=== PATIENT | female | born 1985 | race Caucasian/White ===

== ENCOUNTER 2017-03-21 19:26 | Emergency (ER) | payer OTHER ==
[2017-03-21 19:27] VITALS: BMI 48.2
[2017-03-21] MEDS ORDERED: Sodium Chloride 0.9% 1,000 ML IV STA (20:36)
--- NOTE | 2017-03-21 20:38 | ED PDOC ---
Arrival/HPI - General Chief Complaint: Abdominal Pain Time Seen by Provider: 03/21/17 20:15 - History of Present Illness Narrative History of Present Illness (Text): 03/21/17 20:37 31 yo female, hx of latent tb, on inh x 6 mo, presents with right sided abd pain x 2 week. no fevers, n/v/d, urinary changes. pt denies hemopytsis, cough, chest pain or other complaints Past Medical History - Provider Review Nursing Documentation Reviewed: Yes - Past History Past History: No Previous - Infectious Disease Hx of Infectious Diseases: None - Tetanus Immunization Tetanus Immunization: Unknown - Reproductive Menopause: No - Past Medical History Past Medical History: No Previous - Pulmonary Other/Comment: +PPD test. - Psychiatric Hx Depression: No Hx Emotional Abuse: No Hx Physical Abuse: No Hx Substance Use: No - Past Surgical History Past Surgical History: No Previous - Surgical History Hx Section: Yes - Anesthesia Hx Anesthesia: Yes Hx Anesthesia Reactions: No Hx Malignant Hyperthermia: No - Suicidal Assessment Feels Threatened In Home Enviroment: No Family/Social History - Physician Review Nursing Documentation Reviewed: Yes Family/Social History: Unknown Family HX Smoking Status: Never Smoked Hx Alcohol Use: No Hx Substance Use: No Hx Substance Use Treatment: No Allergies/Home Meds Allergies/Adverse Reactions: Allergies No Known Allergies Allergy (Verified 03/27/16 17:16) Review of Systems - Review of Systems Constitutional: Normal Eyes: Normal ENT: Normal Respiratory: Normal Cardiovascular: Normal Gastrointestinal: Abdominal Pain. absent: Vomiting Genitourinary Female: Normal Musculoskeletal: Normal Skin: Normal Neurological: Normal Endocrine: Normal Hemo/Lymphatic: Normal Psychiatric: Normal Physical Exam Vital Signs Temp Pulse Resp BP Pulse Ox 03/21/17 23:14 70 18 116/59 L 100 03/21/17 21:13 82 17 129/80 100 03/21/17 19:27 98.6 F 86 17 130/78 100 Temperature: Afebrile Blood Pressure: Normal Pulse: Regular Respiratory Rate: Normal Appearance: Positive for: Well-Appearing, Non-Toxic, Comfortable Pain Distress: None Mental Status: Positive for: Alert and Oriented X 3 - Systems Exam Head: Present: Atraumatic, Normocephalic Pupils: Present: PERRL Extroacular Muscles: Present: EOMI Conjunctiva: Present: Normal Mouth: Present: Moist Mucous Membranes Neck: Present: Normal Range of Motion Respiratory/Chest: Present: Clear to Auscultation, Good Air Exchange. No: Respiratory Distress, Accessory Muscle Use Cardiovascular: Present: Regular Rate and Rhythm, Normal S1, S2. No: Murmurs Abdomen: Present: Tenderness (right sided abd pain no rebound gaurding), Normal Bowel Sounds. No: Distention, Peritoneal Signs, Rebound, Guarding Back: Present: Normal Inspection Upper Extremity: Present: Normal Inspection. No: Cyanosis, Edema Lower Extremity: Present: Normal Inspection. No: Edema Neurological: Present: GCS=15, CN II-XII Intact, Speech Normal Skin: Present: Warm, Dry, Normal Color. No: Rashes Psychiatric: Present: Alert, Oriented x 3, Normal Insight, Normal Concentration Medical Decision Making ED Course and Treatment: 03/21/17 23:45 abd pain, consider gastritis, gallbladder, appenditis, colitis. 1145: bedside us shows no gallbladder pathology, however limted study 2/[address] shows no acute pathology. pt offered official us, but declines and prefers to f/ u outpt. pain improved in er. notfiied of leukocytosis. advise outpt f/u. return precautiions advsied. no cardiopulmonary complaints, hemoptysis. 03/22/17 04:49 - Lab Interpretations Lab Results: 03/21/17 21:00 03/21/17 21:00 Lab Results 03/21/17 21:00: Sodium 138, Potassium 3.6, Chloride 98, Carbon Dioxide 30, Anion Gap 14, BUN 17, Creatinine 0.8, Est GFR ( Amer) > 60, Est GFR (Non- Af Amer) > 60, Random Glucose 82, Calcium 9.5, Total Bilirubin 0.4, AST 32, ALT 27, Alkaline Phosphatase 90, Total Protein 7.4, Albumin 4.4, Globulin 3.0, Albumin/Globulin Ratio 1.5, Lipase 37 03/21/17 21:00: Urine Color Yellow, Urine Appearance Clear, Urine pH 6.0, Ur Specific [place] 1.015, Urine Protein Negative, Urine Glucose (UA) Negative, Urine Ketones Negative, Urine Blood Small H, Urine Nitrate Negative, Urine Bilirubin Negative, Urine Urobilinogen 0.2, Ur Leukocyte Esterase Negative, Urine RBC 0 - 2, Urine WBC 0 - 2, Ur Epithelial Cells 1 - 3, Urine HCG, Qual Negative 03/21/17 21:00: PT 11.8, INR 1.09 H, APTT 30.8 03/21/17 21:00: WBC 14.7 H, RBC 4.90, Hgb 14.0, Hct 41.8, MCV 85.3, MCH 28.6, MCHC 33.5, RDW 12.9, Plt Count 308, MPV 11.5 H, Gran % 68.3 H, Lymph % (Auto) 24.3, [place] % (Auto) 6.4 H, Eos % (Auto) 0.8 L, Baso % (Auto) 0.2, Gran # 10.05 H , Lymph # 3.6 H, [place] # 1.0 H, Eos # 0.1, Baso # 0.03 - RAD Interpretation Radiology Orders: 03/21/17 21:52 ABD & PELVIS IV CONTRAST ONLY [CT] Stat - Medication Orders Current Medication Orders: Discontinued Medications Sodium Chloride (Sodium Chloride 0.9%) 1,000 mls @ 1,000 mls/hr IV .Q1H STA Stop: 03/21/17 21:35 Last Admin: 03/21/17 21:15 Dose: 1,000 mls/hr Iohexol (Omnipaque 300 100 Ml) Confirm Administered Dose 100 ml IJ .K-MED ONE Stop: 03/21/17 22:46 Last Admin: 03/21/17 22:57 Dose: Metoclopramide HCl (Reglan) 10 mg IVP STAT STA Stop: 03/21/17 20:44 Last Admin: 03/21/17 21:13 Dose: 10 mg Pantoprazole Sodium (Protonix Inj) 40 mg IVP STAT STA Stop: 03/21/17 20:37 Last Admin: 03/21/17 21:10 Dose: 40 mg Disposition/Present on Arrival - Present on Arrival Any Indicators Present on Arrival: No History of DVT/PE: No History of Uncontrolled Diabetes: No Urinary Catheter: No History of Decub. Ulcer: No History Surgical Site Infection Following: None - Disposition Have Diagnosis and Disposition been Completed?: Yes Diagnosis: Abdominal pain, Leukocytosis Disposition: HOME/ ROUTINE Disposition Time: 23:46 Condition: STABLE Discharge Instructions (ExitCare): Leukocytosis (ED), Abdominal Pain (ED) Additional Instructions: please follow up with your doctor. return toe r with worsening symptoms or concerns. please have your blood work rechecked. your wbc count was mildly elevated in the blood. Prescriptions: Famotidine [Pepcid] 20 mg PO DAILY #20 tab Referrals: Earl Bah MD [Staff Provider] - Follow up with primary [facility] [Outside] - Follow up with primary Forms: [employer] (Mauritanian)
[2017-03-21 20:53] VITALS: TEMP 98.6; O2SAT 100
[2017-03-21 21:31] LABS: URINE BILIRUBIN NEGATIVE (NEGATIVE); URINE BLOOD SMALL (NEGATIVE); URINE COLOR YELLOW (YELLOW); URINE GLUCOSE (UA) NEGATIVE (NEGATIVE); URINE LEUKOCYTE ESTERASE NEGATIVE Leu/uL (NEGATIVE); URINE NITRATE NEGATIVE (NEGATIVE); URINE PROTEIN NEGATIVE mg/dL (<30 mg/dL); URINE UROBILINOGEN 0.2 E.U./dL (<1 E.U./dL)
[2017-03-21 21:32] LABS: URINE APPEARANCE CLEAR (CLEAR)
[2017-03-21 21:35] LABS: HCG,QUALITATIVE URINE NEGATIVE (NEGATIVE)
[2017-03-21 21:44] LABS: BASO # 0.03 K/mm3 (0.0-2.0); BASO % 0.2 % (0.0-3.0); EOS # 0.1 (0.0-0.7); EOS % 0.8 % (1.5-5.0); GRAN # 10.05 (1.4-6.5); GRAN % 68.3 % (50.0-68.0); LYMPH # 3.6 (1.2-3.4); LYMPH % 24.3 % (22.0-35.0); MEAN CELL VOLUME 85.3 fl (80.0-105.0); MEAN CORPUSCULAR HEMOGLOBIN 28.6 pg (25.0-35.0); MEAN CORPUSCULAR HGB CONC 33.5 g/dl (31.0-37.0); MEAN PLATELET VOLUME 11.5 fl (7.0-11.0); MONO % 6.4 % (1.0-6.0); PLATELET COUNT 308 10^3/uL (120.0-450.0); RED CELL DISTRIBUTION WIDTH 12.9 % (11.5-14.5); WHITE BLOOD COUNT 14.7 10^3/ul (4.5-11.0)
[2017-03-21 21:49] LABS: URINE RBC 0 - 2 /hpf (0-2); URINE WBC 0 - 2 /hpf (0-6)
[2017-03-21 21:56] LABS: INR 1.09 (0.93-1.08); PARTIAL THROMBOPLASTIN TIME 30.8 Seconds (23.7-30.8); PROTHROMBIN TIME 11.8 Seconds (9.9-11.8)
[2017-03-21 21:57] LABS: ALB/GLOB RATIO 1.5 (1.1-1.8); ALBUMIN 4.4 g/dL (3.0-4.8); ALT/SGPT 27 U/L (7-56); AST/SGOT 32 U/L (15-39); BLOOD UREA NITROGEN 17 mg/dL (7-21); CALCIUM 9.5 mg/dL (8.4-10.5); GFR AFRICAN-AMERICAN > 60; GFR NON-AFRICAN AMERICAN > 60; LIPASE 37 U/L (23-300)
[2017-03-21] MEDS ORDERED: Iohexol 300 100 ML IJ ONE (22:45)
[2017-03-21 23:15] VITALS: BP 116/59; PULSE 70; RESP 18
--- NOTE | 2017-03-22 09:37 | CT ---
PROCEDURE: CT Abdomen and Pelvis with contrast HISTORY: right sided pain, leukocytosis COMPARISON: None. TECHNIQUE: Contrast dose: 100 cc Omnipaque 300 Radiation dose: Total exam DLP = 997.18 mGy-cm. This CT exam was performed using one or more of the following dose reduction techniques: Automated exposure control, adjustment of the mA and/or kV according to patient size, and/or use of iterative reconstruction technique. FINDINGS: LOWER THORAX: Unremarkable. LIVER: 2 cm contrast-enhancing mass adjacent to the gallbladder fossa right hepatic lobe consistent with flash hemangioma. GALLBLADDER AND BILE DUCTS: Unremarkable. PANCREAS: Unremarkable. No gross lesion or ductal dilatation. SPLEEN: Unremarkable. ADRENALS: Unremarkable. No mass. KIDNEYS AND URETERS: Unremarkable. No hydronephrosis. No solid mass. VASCULATURE: Unremarkable. No aortic aneurysm. BOWEL: Constipation without fecal impaction or obstruction. APPENDIX: Normal appendix. PERITONEUM: Unremarkable. No free fluid. No free air. LYMPH NODES: Unremarkable. No enlarged lymph nodes. BLADDER: Unremarkable. REPRODUCTIVE: Unremarkable. BONES: No acute fracture. OTHER FINDINGS: None. IMPRESSION: No acute findings related to/accounting for the clinical presentation. Additional benign and/or incidental findings described above. Concordant results (preliminary interpretation) provided by [facility]. Procedure Completed: 22:54. Preliminary ([facility]) Report: Dictated and Authenticated: 23:37. Final Interpretation: 09:34. March 22, 2017.
== END 2017-03-21 23:55 | disposition home or self-care (01) ==
LOC: ED 19:26
DX: D72.829 Elevated white blood cell count, unspecified (principal); R10.9 Unspecified abdominal pain
CPT/HCPCS: 74177; 80053; 81001; 83690; 84703; 85025; 85610; 85730; 96361; 96374; 96375; 99284; C9113; J2765; J7040; Q9967

== ENCOUNTER 2017-08-28 16:18 | Emergency (ER) | payer OTHER ==
[2017-08-28 17:02] VITALS: RESP 18; BMI 40.3
--- NOTE | 2017-08-28 17:05 | ED PDOC ---
Arrival/HPI - General Chief Complaint: Back Pain Time Seen by Provider: 08/28/17 16:55 Historian: Patient - History of Present Illness Narrative History of Present Illness (Text): 08/28/17 16:58 This 32 yo female who denies pmh, presents to this ED c/o RUQ pain, and under right breast x 2 weeks. Patient stated pain worsen with movement, but it improves ice pack, Advil, and rest. Denies sob, skin rash, abdominal pain, urinary symptoms, dizziness, palpitation, or abnormal gait. PERC negative for PE. Time/Duration: Other (2 weeks) Quality: Aching Context: Home Past Medical History - Provider Review Nursing Documentation Reviewed: Yes - Past History Past History: No Previous - Infectious Disease Hx of Infectious Diseases: None - Tetanus Immunization Tetanus Immunization: Unknown - Past Medical History Past Medical History: No Previous - Cardiac Hx Cardiac Disorders: No - Pulmonary Hx Respiratory Disorders: Yes Other/Comment: +PPD test. - Neurological Hx Neurological Disorder: No - HEENT Hx HEENT Disorder: No - Renal Hx Renal Disorder: No - Endocrine/Metabolic Hx Endocrine Disorders: No - Hematological/Oncological Hx Blood Disorders: No - Integumentary Hx Dermatological Disorder: No - Musculoskeletal/Rheumatological Hx Musculoskeletal Disorders: No - Gastrointestinal Hx Gastrointestinal Disorders: No - Genitourinary/Gynecological Hx Genitourinary Disorders: No - Psychiatric Hx Depression: No Hx Emotional Abuse: No Hx Physical Abuse: No Hx Substance Use: No - Past Surgical History Past Surgical History: No Previous - Surgical History Hx Section: Yes - Anesthesia Hx Anesthesia: Yes Hx Anesthesia Reactions: No Hx Malignant Hyperthermia: No - Suicidal Assessment Feels Threatened In Home Enviroment: No Family/Social History - Physician Review Nursing Documentation Reviewed: Yes Family/Social History: Other (noncontributory) Smoking Status: Never Smoked Hx Alcohol Use: No Hx Substance Use: No Hx Substance Use Treatment: No Allergies/Home Meds Allergies/Adverse Reactions: Allergies No Known Allergies Allergy (Verified 08/28/17 16:27) Review of Systems - Review of Systems Constitutional: Normal. absent: Fatigue, Weight Change, Fevers Eyes: Normal ENT: Normal Respiratory: Normal. absent: SOB, Cough Cardiovascular: Other (right sided chest wall pain) Gastrointestinal: Normal. absent: Abdominal Pain, Nausea, Vomiting Genitourinary Female: Normal Musculoskeletal: Normal Skin: Normal Neurological: Normal Endocrine: Normal Hemo/Lymphatic: Normal Psychiatric: Normal Physical Exam Vital Signs Temp Pulse Resp BP Pulse Ox 08/28/17 18:38 98 F 58 L 18 111/55 L 100 08/28/17 16:29 99.1 F 63 18 126/82 98 08/28/17 16:28 99.1 F 67 18 126/82 99 Temperature: Afebrile Blood Pressure: Normal Pulse: Regular Respiratory Rate: Normal Appearance: Positive for: Well-Appearing, Non-Toxic, Comfortable Pain Distress: None Mental Status: Positive for: Alert and Oriented X 3 - Systems Exam Head: Present: Atraumatic, Normocephalic Pupils: Present: PERRL Extroacular Muscles: Present: EOMI Conjunctiva: Present: Normal Mouth: Present: Moist Mucous Membranes Neck: Present: Normal Range of Motion Respiratory/Chest: Present: Clear to Auscultation, Good Air Exchange. No: Respiratory Distress, Accessory Muscle Use Cardiovascular: Present: Regular Rate and Rhythm, Normal S1, S2. No: Murmurs Abdomen: Present: Normal Bowel Sounds, Other (No Dyer' sign). No: Tenderness , Distention, Peritoneal Signs, Rebound, Guarding Back: Present: Normal Inspection. No: CVA Tenderness Upper Extremity: Present: Normal Inspection, Normal ROM. No: Cyanosis, Edema Lower Extremity: Present: Normal Inspection, Normal ROM. No: Edema Neurological: Present: GCS=15, CN II-XII Intact, Speech Normal Skin: Present: Warm, Dry, Normal Color. No: Rashes Psychiatric: Present: Alert, Oriented x 3, Normal Insight, Normal Concentration Medical Decision Making ED Course and Treatment: 08/28/17 19:18 Re-evaluation. Patient feels better. Discussed results and plan with patient who expresses understanding. All questions answered and there is agreement with the plan to discharge home with instructions. Patient stable for discharge. Return if symptoms persist or worsen. 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 Re-evaluation Time: 19:18 Reassessment Condition: Re-examined, Improved - Lab Interpretations Lab Results: 08/28/17 17:10 08/28/17 17:10 Lab Results 08/28/17 17:10: Sodium 134, Potassium 4.3, Chloride 100, Carbon Dioxide 26, Anion Gap 13, BUN 17, Creatinine 0.7, Est GFR ( Amer) > 60, Est GFR (Non- Af Amer) > 60, Random Glucose 92, Calcium 9.5, Total Bilirubin 0.3, AST 25, ALT 32, Alkaline Phosphatase 98, Total Protein 7.7, Albumin 4.2, Globulin 3.5, Albumin/Globulin Ratio 1.2, Lipase 33 08/28/17 17:10: WBC 13.9 H, RBC 4.75, Hgb 13.4, Hct 41.8, MCV 88.0, MCH 28.2, MCHC 32.1, RDW 13.2, Plt Count 297, MPV 11.6 H, Gran % 70.6 H, Lymph % (Auto) 21.9 L, [place] % (Auto) 6.5 H, Eos % (Auto) 0.9 L, Baso % (Auto) 0.1, Gran # 9.79 H, Lymph # 3.0, [place] # 0.9 H, Eos # 0.1, Baso # 0.02 08/28/17 16:40: Urine Color Yellow, Urine Appearance Sl cloudy, Urine pH 6.0, Ur Specific [place] 1.025, Urine Protein Negative, Urine Glucose (UA) Negative, Urine Ketones Negative, Urine Blood Trace-intact H, Urine Nitrate Negative, Urine Bilirubin Negative, Urine Urobilinogen 0.2, Ur Leukocyte Esterase Trace H , Urine RBC 0 - 2, Urine WBC 2 - 5, Ur Epithelial Cells 10 - 12, Urine Bacteria Many, Urine HCG, Qual Negative I have reviewed the lab results: Yes Interpretation: No clinic. lab abnormalty - RAD Interpretation Narrative RAD Interpretations (Text): 08/28/17 19:02 HISTORY: RUQ pain COMPARISON: Abdominal ultrasound performed 04/01/17 TECHNIQUE: Sonographic evaluation of the abdomen. FINDINGS: LIVER: Measures 17.5 cm in sagittal dimension and appears unremarkable. No focal hepatic mass identified. The main portal vein appears patent with normal directional flow. No intrahepatic bile duct dilatation. GALLBLADDER: No gallstones. No gallbladder wall thickening. Negative sonographic Dyer's sign as assessed by the behaviorist. COMMON BILE DUCT: Measures 4 mm. PANCREAS: Not well visualized. RIGHT KIDNEY: Measures 11.3 x 5.6 x 5.5cm. No obstructing calculus or hydronephrosis identified. LEFT KIDNEY: Not visualized. SPLEEN: Measures approximately 9.9 cm. 1.7 cm probable splenule. AORTA: Limited views appear unremarkable. IVC: Limited views appear unremarkable. OTHER FINDINGS: None. IMPRESSION: No acute findings identified. 08/28/17 19:21 Chest X-rays: NAD Radiology Orders: 08/28/17 16:55 ABDOMEN COMPLETE [US] Stat 08/28/17 17:08 CHEST TWO VIEWS (PA/LAT) [RAD] Stat - Medication Orders Current Medication Orders: Discontinued Medications Cephalexin Monohydrate (Keflex) 500 mg PO STAT STA PRN Reason: Protocol Stop: 08/28/17 19:23 Last Admin: 08/28/17 19:42 Dose: 500 mg Famotidine (Pepcid) 20 mg IVP STAT STA Stop: 08/28/17 16:56 Last Admin: 08/28/17 17:13 Dose: 20 mg IVP Administration Document 08/28/17 17:13 [facility] (Rec: 08/28/17 17:13 [facility] [id number]) Charges for Administration # of IVP Administrations 1 Ketorolac Tromethamine (Toradol) 30 mg IVP STAT STA Stop: 08/28/17 16:56 Last Admin: 08/28/17 17:13 Dose: 30 mg MAR Pain Assessment Document 08/28/17 17:13 [facility] (Rec: 08/28/17 17:13 [facility] [id number]) Pain Reassessment Is this a pain reassessment? No IVP Administration Document 08/28/17 17:13 [facility] (Rec: 08/28/17 17:13 [facility] [id number]) Charges for Administration # of IVP Administrations 1 Disposition/Present on Arrival - Present on Arrival Any Indicators Present on Arrival: No History of DVT/PE: No History of Uncontrolled Diabetes: No Urinary Catheter: No History of Decub. Ulcer: No History Surgical Site Infection Following: None - Disposition Have Diagnosis and Disposition been Completed?: Yes Diagnosis: Chest wall pain Disposition: HOME/ ROUTINE Disposition Time: 19:19 Patient Plan: Discharge Condition: GOOD Discharge Instructions (ExitCare): Chest Wall Pain (ED) Additional Instructions: Call private doctor for follow up visit in 1-2 days. take medication as instructed with food. Return to emergency if symptoms worsen. Review urine culture result in 2-3 days with your doctor. Prescriptions: Cephalexin [cephalexin] 500 mg PO BID #10 cap Famotidine [Pepcid] 40 mg PO DAILY #10 tablet Naproxen 500 mg PO BID PRN #14 tab PRN Reason: Pain, Severe (8-10) Referrals: Jorge Davis MD [Primary Care Provider] - Follow up with primary Forms: [employer] (Bengali), WORK NOTE
[2017-08-28 17:26] LABS: URINE BILIRUBIN NEGATIVE (NEGATIVE); URINE BLOOD TRACE-INTACT (NEGATIVE); URINE GLUCOSE (UA) NEGATIVE (NEGATIVE); URINE LEUKOCYTE ESTERASE TRACE Leu/uL (NEGATIVE); URINE NITRATE NEGATIVE (NEGATIVE); URINE PROTEIN NEGATIVE mg/dL (<30 mg/dL); URINE UROBILINOGEN 0.2 E.U./dL (<1 E.U./dL)
[2017-08-28 17:28] LABS: URINE APPEARANCE SL CLOUDY (CLEAR); URINE COLOR YELLOW (YELLOW)
[2017-08-28 17:30] LABS: HCG,QUALITATIVE URINE NEGATIVE (NEGATIVE)
[2017-08-28 17:35] LABS: URINE BACTERIA MANY (NEG); URINE RBC 0 - 2 /hpf (0-2)
[2017-08-28 17:39] LABS: BASO # 0.02 K/mm3 (0.0-2.0); BASO % 0.1 % (0.0-3.0); EOS # 0.1 (0.0-0.7); EOS % 0.9 % (1.5-5.0); GRAN # 9.79 (1.4-6.5); GRAN % 70.6 % (50.0-68.0); HEMOGLOBIN 13.4 g/dL (12.0-16.0); LYMPH % 21.9 % (22.0-35.0); MEAN CORPUSCULAR HEMOGLOBIN 28.2 pg (25.0-35.0); MEAN CORPUSCULAR HGB CONC 32.1 g/dl (31.0-37.0); MEAN PLATELET VOLUME 11.6 fl (7.0-11.0); MONO # 0.9 (0.1-0.6); MONO % 6.5 % (1.0-6.0); RBC 4.75 10^6/uL (3.5-6.1); RED CELL DISTRIBUTION WIDTH 13.2 % (11.5-14.5); WHITE BLOOD COUNT 13.9 10^3/ul (4.5-11.0)
[2017-08-28 17:49] LABS: ALB/GLOB RATIO 1.2 (1.1-1.8); ALBUMIN 4.2 g/dL (3.0-4.8); ALT/SGPT 32 U/L (7-56); AST/SGOT 25 U/L (14-36); BLOOD UREA NITROGEN 17 mg/dL (7-21); CALCIUM 9.5 mg/dL (8.4-10.5); GFR AFRICAN-AMERICAN > 60; GFR NON-AFRICAN AMERICAN > 60; LIPASE 33 U/L (23-300)
--- NOTE | 2017-08-28 18:15 | US ---
HISTORY: RUQ pain COMPARISON: Abdominal ultrasound performed 04/01/17 TECHNIQUE: Sonographic evaluation of the abdomen. FINDINGS: LIVER: Measures 17.5 cm in sagittal dimension and appears unremarkable. No focal hepatic mass identified. The main portal vein appears patent with normal directional flow. No intrahepatic bile duct dilatation. GALLBLADDER: No gallstones. No gallbladder wall thickening. Negative sonographic Dyer's sign as assessed by the supervisor home economics. COMMON BILE DUCT: Measures 4 mm. PANCREAS: Not well visualized. RIGHT KIDNEY: Measures 11.3 x 5.6 x 5.5cm. No obstructing calculus or hydronephrosis identified. LEFT KIDNEY: Not visualized. SPLEEN: Measures approximately 9.9 cm. 1.7 cm probable splenule. AORTA: Limited views appear unremarkable. IVC: Limited views appear unremarkable. OTHER FINDINGS: None. IMPRESSION: No acute findings identified.
[2017-08-28 18:40] VITALS: PULSE 58; TEMP 98; O2SAT 100
[2017-08-28 18:45] VITALS: BP 111/55
--- NOTE | 2017-08-29 08:30 | RAD ---
HISTORY: COMPARISON: 03/25/2013. TECHNIQUE: Chest PA and lateral FINDINGS: LINES AND TUBES: None. LUNG AND PLEURA: The lungs are well inflated and clear. HEART AND MEDIASTINUM: The heart is not enlarged. The hilar and mediastinal contours are within normal limits. SKELETAL STRUCTURES: The bony structures are within normal limits for the patient's age. VISUALIZED UPPER ABDOMEN: Normal. OTHER FINDINGS: None. IMPRESSION: No active pulmonary disease.
== END 2017-08-28 19:45 | disposition home or self-care (01) ==
LOC: ED 16:18
DX: R07.89 Other chest pain (principal)
CPT/HCPCS: 71046; 76700; 80053; 81001; 83690; 84703; 85025; 87086; 96374; 96375; 99283; J1885

== ENCOUNTER 2018-04-11 15:28 | Emergency (ER) | payer OTHER ==
[2018-04-11 15:28] VITALS: BMI 40.3
[2018-04-11 15:50] VITALS: RESP 18; TEMP 99.4
--- NOTE | 2018-04-11 15:59 | ED PDOC ---
Arrival/HPI - General Chief Complaint: Abdominal Pain Time Seen by Provider: 04/11/18 15:35 Historian: Patient - History of Present Illness Narrative History of Present Illness (Text): 04/11/18 15:54 32 year old female, with no significant past medical history, who presents to the ED complaining of left pelvic pain that radiates to the back x 3-4 days. Patient notes associated dysuria and increased frequency, however, she feels she is not emptying her bladder. Patient has been experiencing similar symptoms over the past month, for which she has seen a supervisor [employer], but symptoms have worsened over the past 3-4 days. Patient took Vesicare, which provided relief in emptying bladder but no relief to pain. Patient denies any fevr, chills, neck pain, vaginal bleeding, or vaginal discharge. Rehabilitation Therapist: Dr. Grace Time/Duration: < week Symptom Onset: Gradual Symptom Course: Unchanged Activities at Onset: Light Context: Home Past Medical History - Provider Review Nursing Documentation Reviewed: Yes - Past History Past History: No Previous - Infectious Disease Hx of Infectious Diseases: None - Tetanus Immunization Tetanus Immunization: Unknown - Past Medical History Past Medical History: No Previous - Cardiac Hx Cardiac Disorders: No - Pulmonary Hx Respiratory Disorders: Yes Other/Comment: +PPD test. - Neurological Hx Neurological Disorder: No - HEENT Hx HEENT Disorder: No - Renal Hx Renal Disorder: No - Endocrine/Metabolic Hx Endocrine Disorders: No - Hematological/Oncological Hx Blood Disorders: No - Integumentary Hx Dermatological Disorder: No - Musculoskeletal/Rheumatological Hx Musculoskeletal Disorders: No - Gastrointestinal Hx Gastrointestinal Disorders: No - Genitourinary/Gynecological Hx Genitourinary Disorders: No - Psychiatric Hx Depression: No Hx Emotional Abuse: No Hx Physical Abuse: No Hx Substance Use: No - Past Surgical History Past Surgical History: No Previous - Surgical History Hx Section: Yes - Anesthesia Hx Anesthesia: Yes Hx Anesthesia Reactions: No Hx Malignant Hyperthermia: No - Suicidal Assessment Feels Threatened In Home Enviroment: No Family/Social History - Physician Review Nursing Documentation Reviewed: Yes Family/Social History: Unknown Family HX Smoking Status: Never Smoked Hx Alcohol Use: No Hx Substance Use: No Hx Substance Use Treatment: No Allergies/Home Meds Allergies/Adverse Reactions: Allergies No Known Allergies Allergy (Verified 04/11/18 15:42) Review of Systems - Physician Review All systems were reviewed & negative as marked: Yes - Review of Systems Constitutional: Normal Eyes: Normal ENT: Normal Respiratory: Normal. absent: SOB, Cough Cardiovascular: Normal. absent: Chest Pain Gastrointestinal: Normal, Abdominal Pain (Left lower pelvic pain) Genitourinary Female: Dysuria, Frequency. absent: Vaginal Bleeding, Vaginal Discharge Musculoskeletal: Back Pain Skin: Normal. absent: Rash Neurological: Normal. absent: Headache, Dizziness Endocrine: Normal Hemo/Lymphatic: Normal Psychiatric: Normal Physical Exam Vital Signs Reviewed: Yes Vital Signs Temp Pulse Resp BP Pulse Ox 04/11/18 15:40 99.4 F 82 18 137/86 100 Temperature: Afebrile Blood Pressure: Normal Pulse: Regular Respiratory Rate: Normal Appearance: Positive for: Well-Appearing, Non-Toxic, Comfortable Pain Distress: None Mental Status: Positive for: Alert and Oriented X 3 - Systems Exam Head: Present: Atraumatic, Normocephalic Pupils: Present: PERRL Extroacular Muscles: Present: EOMI Conjunctiva: Present: Normal Mouth: Present: Moist Mucous Membranes Neck: Present: Normal Range of Motion Respiratory/Chest: Present: Clear to Auscultation, Good Air Exchange. No: Respiratory Distress, Accessory Muscle Use Cardiovascular: Present: Regular Rate and Rhythm, Normal S1, S2. No: Murmurs Abdomen: Present: Tenderness (Left lower pelvic tenderness). No: Distention, Peritoneal Signs Back: Present: CVA Tenderness (left CVA tenderness) Upper Extremity: Present: Normal Inspection. No: Cyanosis, Edema Lower Extremity: Present: Normal Inspection. No: Edema Neurological: Present: GCS=15, CN II-XII Intact, Speech Normal Skin: Present: Warm, Dry, Normal Color. No: Rashes Psychiatric: Present: Alert, Oriented x 3, Normal Insight, Normal Concentration Medical Decision Making ED Course and Treatment: 04/11/18 16:02 Impression: 32 year old female who presents to the ED c/o left pelvic pain that radiates to the back. Differential Diagnosis: Rule out kidney stones vs. UTI Plan: -- CT Abd/pelvis -- Labs -- Toradol -- UA -- POC Urine Temi -- reassess and disposition Progress Notes: Previous US Transvaginal results from 04/01/2018, shows: Impression: Upper limis of normal endometrium 1447 mm without focal cystic or solid lesion isolated. Myometrium is unremarkable diffusely. Small simple cysts are identified at he left ovary with the largest measure 1.9 cm greates dimension. Left ovary is otherwise unremarkable. Right ovary not identified potentially is a function overlying bowel. Right oopherectomy not excluded. Clinically correlate further. 04/11/18 17:41 US Transvaginal reviewed, shows: IMPRESSION: 1.9 x 1.2 x 1.9 cm left para ovarian cyst. 04/11/18 17:43 CT Abd/pelvis reviewed, shows: IMPRESSION: No acute findings identified. 04/11/18 18:04 Patient feels better. UA negative but since patient is having urinary symptoms with left flank/abdominal pain will tx with Keflex QID x 10 days. Motrin prn for pain. Patient has follow up set up already with Dr. Goetz Urology, Dr. Chávez, WATCH COMMANDER and GI doctor as well. - Lab Interpretations Lab Results: 04/11/18 16:25 04/11/18 16:25 Lab Results 04/11/18 16:25: Sodium 140, Potassium 3.9, Chloride 106, Carbon Dioxide 22, Anion Gap 16, BUN 15, Creatinine 0.5 L, Est GFR ( Amer) > 60, Est GFR ( Non-Af Amer) > 60, Random Glucose 143 H, Calcium 9.3, Total Bilirubin 0.2, AST 22, ALT 22, Alkaline Phosphatase 107, Total Protein 7.3, Albumin 3.9, Globulin 3.4, Albumin/Globulin Ratio 1.2 04/11/18 16:25: Urine Color Yellow, Urine Appearance Clear, Urine pH 6.0, Ur Specific Whitney >= 1.030, Urine Protein Negative, Urine Glucose (UA) Negative, Urine Ketones Negative, Urine Blood Negative, Urine Nitrate Negative, Urine Bilirubin Negative, Urine Urobilinogen 0.2, Ur Leukocyte Esterase Negative 04/11/18 16:25: WBC 15.7 H D, RBC 4.58, Hgb 12.9, Hct 38.6, MCV 84.3 D, MCH 28.2, MCHC 33.4, RDW 13.7, Plt Count 329, MPV 11.1 H, Gran % 81.9 H, Lymph % ( Auto) 13.4 L, Wayne % (Auto) 4.0, Eos % (Auto) 0.5 L, Baso % (Auto) 0.2, Gran # 12.83 H, Lymph # (Auto) 2.1, Wayne # (Auto) 0.6, Eos # (Auto) 0.1, Baso # (Auto) 0.03 - RAD Interpretation Radiology Orders: 04/11/18 15:54 ABD & PELVIS W/O PO OR IV CONT [CT] Stat 04/11/18 16:18 TRANSVAGINAL [US] Stat - Medication Orders Current Medication Orders: Discontinued Medications Cephalexin Monohydrate (Keflex) 500 mg PO STAT STA PRN Reason: Protocol Stop: 04/11/18 17:57 Ketorolac Tromethamine (Toradol) 30 mg IVP STAT STA Stop: 04/11/18 15:55 Last Admin: 04/11/18 16:43 Dose: 30 mg MAR Pain Assessment Document 04/11/18 16:43 SF (Rec: 04/11/18 16:43 SF [facility] [email or web address] Pain Reassessment Is this a pain reassessment? Yes Sleep Is patient sleeping during reassessment? No Presence of Pain Presence of Pain Yes IVP Administration Document 04/11/18 16:43 SF (Rec: 04/11/18 16:43 SF [facility] [email or web address] Charges for Administration # of IVP Administrations 1 - Scribe Statement The provider has reviewed the documentation as recorded by the Scribe Beatris Hartman All medical record entries made by the Scribe were at my direction and personally dictated by me. I have reviewed the chart and agree that the record accurately reflects my personal performance of the history, physical exam, medical decision making, and the department course for this patient. I have also personally directed, reviewed, and agree with the discharge instructions and disposition. Disposition/Present on Arrival - Present on Arrival Any Indicators Present on Arrival: No History of DVT/PE: No History of Uncontrolled Diabetes: No Urinary Catheter: No History of Decub. Ulcer: No History Surgical Site Infection Following: None - Disposition Have Diagnosis and Disposition been Completed?: Yes Diagnosis: Ovarian cyst, Symptomatic urinary tract infection Disposition Time: 18:05 Patient Plan: Discharge Patient Problems: Current Active Problems Problem Status Onset Ovarian cyst Acute Symptomatic urinary tract infection Acute Condition: IMPROVED Discharge Instructions (ExitCare): Urinary Tract Infections in Adults, Ovarian Cyst (DC) Additional Instructions: JOSE LORENZ, thank you for letting us take care of you today. Your provider was Reji West DO and you were treated for Ovarian Cyst, UTI. The emergency medical care you received today was directed at your acute symptoms. If you were prescribed any medication, please fill it and take as directed. It may take several days for your symptoms to resolve. Return to the Emergency Department if your symptoms worsen, do not improve, or if you have any other problems. Please contact your doctor or call one of the physicians/clinics you have been referred to that are listed on the Patient Visit Information form that is included in your discharge packet. Bring any paperwork you were given at discharge with you along with any medications you are taking to your follow up visit. Our treatment cannot replace ongoing medical care by a primary care provider outside of the emergency department. Thank you for allowing the [facility] team to be part of your care today. If you had an X-Ray or CT scan: A Radiologist will review the ED reading if any change in treatment is needed we will contact you. If you had a blood, urine, or wound culture: It will take several days for the results, if any change in treatment is needed we will contact you. If you had an STI test: It will take 48 hours for the results. Please call after 1 week if you have not heard back. Prescriptions: Cephalexin [Keflex] 500 mg PO Q6H #40 capsule Ibuprofen [Motrin] 600 mg PO Q6 PRN #30 tab PRN Reason: Pain, Moderate (4-7) Referrals: Silvina Chávez MD [Medical Doctor] - Follow up with primary Marek Goetz MD [Staff Provider] - Follow up with primary Artie Hurtado MD [Family Provider] - Follow up with primary Forms: [employer] (Guyanese), WORK NOTE
[2018-04-11 17:00] LABS: BASO # 0.03 K/mm3 (0.0-2.0); BASO % 0.2 % (0.0-3.0); EOS # 0.1 (0.0-0.7); EOS % 0.5 % (1.5-5.0); GRAN # 12.83 (1.4-6.5); GRAN % 81.9 % (50.0-68.0); HEMOGLOBIN 12.9 g/dL (12.0-16.0); LYMPH # 2.1 (1.2-3.4); LYMPH % 13.4 % (22.0-35.0); MEAN CELL VOLUME 84.3 fl (80.0-105.0); MEAN CORPUSCULAR HEMOGLOBIN 28.2 pg (25.0-35.0); MEAN CORPUSCULAR HGB CONC 33.4 g/dl (31.0-37.0); MEAN PLATELET VOLUME 11.1 fl (7.0-11.0); MONO # 0.6 (0.1-0.6); RBC 4.58 10^6/uL (3.5-6.1); RED CELL DISTRIBUTION WIDTH 13.7 % (11.5-14.5); WHITE BLOOD COUNT 15.7 10^3/ul (4.5-11.0)
[2018-04-11 17:01] LABS: URINE BILIRUBIN NEGATIVE (NEGATIVE); URINE BLOOD NEGATIVE (NEGATIVE); URINE GLUCOSE (UA) NEGATIVE (NEGATIVE); URINE LEUKOCYTE ESTERASE NEGATIVE Leu/uL (NEGATIVE); URINE PROTEIN NEGATIVE mg/dL (<30 mg/dL); URINE UROBILINOGEN 0.2 E.U./dL (<1 E.U./dL)
[2018-04-11 17:02] LABS: URINE APPEARANCE CLEAR (CLEAR); URINE COLOR YELLOW (YELLOW)
[2018-04-11 17:11] LABS: ALB/GLOB RATIO 1.2 (1.1-1.8); ALBUMIN 3.9 g/dL (3.0-4.8); ALT/SGPT 22 U/L (7-56); AST/SGOT 22 U/L (14-36); BLOOD UREA NITROGEN 15 mg/dL (7-21); CALCIUM 9.3 mg/dL (8.4-10.5); GFR NON-AFRICAN AMERICAN > 60
--- NOTE | 2018-04-11 17:35 | US ---
Date of service: 04/11/2018 HISTORY: left pelvic pain r/o torsion COMPARISON: Transvaginal ultrasound performed 04/01/18 TECHNIQUE: Transvaginal pelvic ultrasound FINDINGS: UTERUS: Measures 9.1 x 4.3 x 6.4 cm. Anteverted. ENDOMETRIUM: Measures 7 mm in diameter. CERVIX: No cervical abnormality identified. RIGHT OVARY: Measures 2.5 x 1.8 x 2.2 cm. Blood flow is demonstrated. LEFT OVARY: Measures 2.9 x 2.1 x 2.3 cm. Blood flow is demonstrated. 1.9 x 1.2 x 1.9 cm para ovarian cyst. FREE FLUID: No significant free fluid noted. OTHER FINDINGS: None. IMPRESSION: 1.9 x 1.2 x 1.9 cm left para ovarian cyst.
--- NOTE | 2018-04-11 17:41 | CT ---
PROCEDURE: CT Abdomen and Pelvis without Oral or IV contrast. HISTORY: left flank, left lower abd pain r/o kidney stone COMPARISON: CT abdomen and pelvis without and with IV contrast performed 01/24/18 TECHNIQUE: Contiguous axial images of the abdomen and pelvis. No oral or IV contrast administered. Coronal and Sagittal reformats generated and reviewed. Radiation dose: Total exam DLP = 1164.36 mGy-cm. This CT exam was performed using one or more of the following dose reduction techniques: Automated exposure control, adjustment of the mA and/or kV according to patient size, and/or use of iterative reconstruction technique. FINDINGS: There is limited evaluation of the solid organs without the administration of IV contrast. LOWER THORAX: No visible consolidation, pleural effusion, or pneumothorax. LIVER: Unremarkable unenhanced appearance. GALLBLADDER AND BILE DUCTS: Unremarkable unenhanced appearance. PANCREAS: Unremarkable unenhanced appearance. SPLEEN: 14 mm probable splenule. Otherwise unremarkable unenhanced appearance. ADRENALS: Unremarkable unenhanced appearance. KIDNEYS AND URETERS: No hydronephrosis or obstructing renal calculus. BLADDER: The urinary bladder appears unremarkable. REPRODUCTIVE: Uterus is present. APPENDIX: The appendix appears within normal limits of caliber. No secondary signs of acute appendicitis. BOWEL: The stomach is nondistended. Lack of oral contrast limits evaluation for bowel pathology. The bowel loops appear within normal limits of caliber without evidence of intestinal obstruction. PERITONEUM: No significant free fluid. No definite free air. LYMPH NODES: Sub cm mesenteric lymph nodes, nonspecific. VASCULATURE: No aortic aneurysm. BONES: No acute osseous abnormality is detected. OTHER FINDINGS: None. IMPRESSION: No acute findings identified.
[2018-04-11 18:12] VITALS: BP 135/80; PULSE 78
[2018-04-11 18:21] VITALS: O2SAT 100
== END 2018-04-11 18:18 | disposition home or self-care (01) ==
LOC: ED 15:28
DX: N39.0 Urinary tract infection, site not specified (principal); N83.202 Unspecified ovarian cyst, left side
CPT/HCPCS: 74176; 76830; 80053; 81003; 85025; 87086; 87491; 87591; 96374; 99284; J1885

== ENCOUNTER 2018-05-10 18:30 | Emergency (ER) | payer OTHER ==
[2018-05-10 18:30] VITALS: BMI 40.3
[2018-05-10 18:46] VITALS: BP 116/81; PULSE 75; RESP 16; TEMP 99.2; O2SAT 97
--- NOTE | 2018-05-10 19:07 | ED PDOC ---
Arrival/HPI - General Chief Complaint: Cough, Cold, Congestion Time Seen by Provider: 05/10/18 18:49 Historian: Patient - History of Present Illness Narrative History of Present Illness (Text): 05/10/18 18:57 32yo female with history of overactive bladder who present with complaint of sore throat x one week. Although the triage stated cough and body aches, she stated she is in ED mainly for sore throat. States she took a left over Keflex for 2days without relieve. +Odynophagia. She denies dysphagia, drooling, hoarseness, fever, chills, nausea, vomiting, abdominal pain, sick contact, travel, any other complaint. Past Medical History - Provider Review Nursing Documentation Reviewed: Yes - Past History Past History: No Previous - Infectious Disease Hx of Infectious Diseases: None - Tetanus Immunization Tetanus Immunization: Unknown - Past Medical History Past Medical History: No Previous - Cardiac Hx Cardiac Disorders: No - Pulmonary Hx Respiratory Disorders: Yes Other/Comment: +PPD test. - Neurological Hx Neurological Disorder: No - HEENT Hx HEENT Disorder: No - Renal Hx Renal Disorder: No - Endocrine/Metabolic Hx Endocrine Disorders: No - Hematological/Oncological Hx Blood Disorders: No - Integumentary Hx Dermatological Disorder: No - Musculoskeletal/Rheumatological Hx Musculoskeletal Disorders: No - Gastrointestinal Hx Gastrointestinal Disorders: No - Genitourinary/Gynecological Hx Genitourinary Disorders: Yes Other/Comment: OVARIAN CYST - Psychiatric Hx Psychophysiologic Disorder: No Hx Substance Use: No - Past Surgical History Past Surgical History: No Previous - Surgical History Hx Section: Yes - Anesthesia Hx Anesthesia: Yes Hx Anesthesia Reactions: No Hx Malignant Hyperthermia: No - Suicidal Assessment Feels Threatened In Home Enviroment: No Family/Social History - Physician Review Nursing Documentation Reviewed: Yes Family/Social History: Unknown Family HX Smoking Status: Never Smoked Hx Alcohol Use: No Hx Substance Use: No Hx Substance Use Treatment: No Allergies/Home Meds Allergies/Adverse Reactions: Allergies No Known Allergies Allergy (Verified 05/10/18 18:39) Home Medications: Home Meds Medication Instructions Recorded Confirmed Oxybutynin [Ditropan Tab] 5 mg PO BID 05/10/18 05/10/18 Review of Systems - Physician Review All systems were reviewed & negative as marked: Yes - Review of Systems Constitutional: Normal Eyes: Normal ENT: Sore Throat Respiratory: Normal Cardiovascular: Normal Gastrointestinal: Normal Genitourinary Female: Normal Musculoskeletal: Normal Skin: Normal Neurological: Normal Endocrine: Normal Hemo/Lymphatic: Normal Psychiatric: Normal Physical Exam Vital Signs Reviewed: Yes Vital Signs Temp Pulse Resp BP Pulse Ox 05/10/18 18:40 99.2 F 75 16 116/81 97 Temperature: Afebrile Blood Pressure: Normal Pulse: Regular Respiratory Rate: Normal Appearance: Positive for: Well-Appearing, Non-Toxic, Comfortable Pain Distress: None Mental Status: Positive for: Alert and Oriented X 3 - Systems Exam Head: Present: Atraumatic, Normocephalic Pupils: Present: PERRL Extroacular Muscles: Present: EOMI Conjunctiva: Present: Normal Mouth: Present: Moist Mucous Membranes Pharnyx: Present: ERYTHEMA, EXUDATE. No: TONSILS ENLARGED, Peritonsilar Swelling, Uvular Deviation, Muffled/Hoarse Voice, Strider Neck: Present: Normal Range of Motion Respiratory/Chest: Present: Clear to Auscultation, Good Air Exchange. No: Respiratory Distress, Accessory Muscle Use Cardiovascular: Present: Regular Rate and Rhythm, Normal S1, S2. No: Murmurs Abdomen: No: Tenderness, Distention, Peritoneal Signs Back: Present: Normal Inspection Upper Extremity: Present: Normal Inspection. No: Cyanosis, Edema Lower Extremity: Present: Normal Inspection. No: Edema Neurological: Present: GCS=15, CN II-XII Intact, Speech Normal Skin: Present: Warm, Dry, Normal Color. No: Rashes Psychiatric: Present: Alert, Oriented x 3, Normal Insight, Normal Concentration Disposition/Present on Arrival - Present on Arrival Any Indicators Present on Arrival: No History of DVT/PE: No History of Uncontrolled Diabetes: No Urinary Catheter: No History of Decub. Ulcer: No History Surgical Site Infection Following: None - Disposition Have Diagnosis and Disposition been Completed?: Yes Diagnosis: Acute pharyngitis Disposition: HOME/ ROUTINE Disposition Time: 19:10 Patient Plan: Discharge Condition: STABLE Discharge Instructions (ExitCare): Bacterial Upper Respiratory Infection, Adult Additional Instructions: Follow up with your Doctor Return to ED for any new or worsening symptoms Prescriptions: Penicillin VK [Penicillin VK Tab] 500 mg PO BID #14 tab Referrals: Kristie Carver MD [Medical Doctor] - Follow up with primary
== END 2018-05-10 19:22 | disposition home or self-care (01) ==
LOC: ED 18:30
DX: J02.9 Acute pharyngitis, unspecified (principal)
CPT/HCPCS: 96372; 99283; J1100